=== PATIENT | male | born 1990 | race Caucasian/White ===

== ENCOUNTER → 2020-04-13 16:26 | Outpatient (CLI) | payer OTHER, SELFPAY ==
[2020-04-14 08:45] LABS: COVID19 Sendout Not Detected (Not Detect)
== END ==
PROVIDERS: Visit Provider Physician Assistant
DX: Z11.59 Encounter for screening for other viral diseases (principal)
CPT/HCPCS: 87635

== ENCOUNTER → 2022-07-18 10:25 | Outpatient (CLI) | payer OTHER, SELFPAY ==
[2022-07-18 13:48] LABS: Cholesterol 309 mg/dL (140-199); HDL Cholesterol 59 mg/dL (40-60); LDL Cholesterol Calculated 235 mg/dL (<100); Triglycerides 74 mg/dL (35-150)
== END ==
PROVIDERS: Referring Provider Internal Medicine Cardiovascular Disease; Visit Provider Internal Medicine Cardiovascular Disease
DX: E78.01 Familial hypercholesterolemia (principal)
CPT/HCPCS: 36415; 80061